=== PATIENT | female | born 1960 | race Caucasian/White ===

== ENCOUNTER 2021-11-13 12:11 | Outpatient (CLI) | payer OTHER | END 2021-11-13 12:12 | disposition home or self-care (01) | LOC: ULT 12:11 | PROVIDERS: ATTEND Internal Medicine Gastroenterology | DX: R10.33 Periumbilical pain (principal); R74.8 Abnormal levels of other serum enzymes; K76.0 Fatty (change of) liver, not elsewhere classified; K76.9 Liver disease, unspecified | CPT/HCPCS: 76705 ==